=== PATIENT | female | born 1935 | race Caucasian/White ===

== ENCOUNTER 2016-07-06 09:53 | Inpatient (IN) | payer MEDICARE, BC ==
[2016-07-06] MEDS ORDERED: ASPIRIN 81 MG CHEW PO STA (10:35)
[2016-07-06 11:05] LABS: Basophils % (A) 0 %; CH 30.8; CHCM 32.2; Eosinophils # (A) 0.1 k/uL (0-0.7); Eosinophils % (A) 1 %; HCT 36.2 % (34.0-46.0); HDW 2.29; HGB 11.4 gm/dL (11.4-16.0); Luc # (Auto) 0.17; Luc % (Auto) 2; Lymphocytes % (A) 24 %; MCH 30.4 pg (25.0-35.0); MCHC 31.6 g/dL (31.0-37.0); MCV 96.1 fL (80.0-100.0); Mean Platelet Volume 7.6; Monocytes # (A) 0.5 k/uL (0-1.0); Monocytes % (A) 5 %; Neutrophils # (A) 5.8 k/uL (1.3-7.7); Neutrophils % (A) 68 %; RBC 3.76 m/uL (3.80-5.40); RDW 12.1 % (11.5-15.5); WBC 8.5 k/uL (3.8-10.6); WBC (Perox) 8.94
--- NOTE | 2016-07-06 11:11 | XR ---
EXAMINATION TYPE: XR chest 2V DATE OF EXAM: 07/06/2016 11:05 AM COMPARISON: March 25, 2014 HISTORY: Shortness of breath TECHNIQUE: Frontal and lateral views of the chest are obtained. FINDINGS: Scattered senescent parenchymal changes noted. Hyperinflation compatible with COPD. No evidence for infiltrate. No evidence for atelectasis. Heart size is stable. Mediastinal structures are stable and grossly unremarkable. No evidence for hilar prominence. Degenerative changes dorsal spine. IMPRESSION: 1. No evidence for acute pulmonary disease.
[2016-07-06 11:12] LABS: Calcium 9.7 mg/dL (8.4-10.2); Magnesium 1.9 mg/dL (1.6-2.3); Potassium 4.9 mmol/L (3.5-5.1); Total Bilirubin 0.4 mg/dL (0.2-1.3); Total Protein 7.6 g/dL (6.3-8.2)
[2016-07-06 11:31] LABS: Partial Thromboplastin Time 20.5 sec (22.0-30.0)
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
[2016-07-06] MEDS ORDERED: MORPHINE SULFATE 4 MG/ML SYRINGE IV PRN (12:53)
[2016-07-06] MEDS ORDERED: NALOXONE 0.4 MG/ML 1 ML VIAL IV PRN (12:53)
[2016-07-06 13:58] LABS: Glucose,Whole Blood 139 mg/dL (75-99)
[2016-07-06 15:57] VITALS: BMI 43.1
[2016-07-06] MEDS ORDERED: ERGOCALCIFEROL 50,000 UNIT CAP PO SCH (16:00)
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
[2016-07-06] MEDS: SODIUM CHLORIDE 0.9% 1,000 ML IV SCH (16:26)
[2016-07-06 17:34] LABS: Glucose,Whole Blood 176 mg/dL (75-99)
[2016-07-06] MEDS: INSULIN GLARGINE 100 UNIT/ML 10 ML VIAL SQ SCH (18:27)
[2016-07-06] MEDS: CLOPIDOGREL 75 MG TAB PO SCH (20:10)
[2016-07-06] MEDS: ATORVASTATIN 20 MG TAB PO SCH (20:10)
[2016-07-06] MEDS: PRAZOSIN 1 MG CAP PO SCH (20:10)
[2016-07-06] MEDS: FAMOTIDINE 20 MG TAB PO SCH (20:10)
[2016-07-06] MEDS: amLODIPine 5 MG TAB PO SCH (20:10)
[2016-07-06] MEDS ORDERED: ALPRAZolam 0.25 MG TAB PO PRN (22:57)
[2016-07-07 04:45] LABS: Basophils % (A) 0 %; CH 30.6; CHCM 31.6; Eosinophils # (A) 0.1 k/uL (0-0.7); Eosinophils % (A) 2 %; HCT 32.4 % (34.0-46.0); HDW 2.19; HGB 10.3 gm/dL (11.4-16.0); Luc # (Auto) 0.13; Luc % (Auto) 2; Lymphocytes % (A) 32 %; MCH 30.7 pg (25.0-35.0); MCHC 31.6 g/dL (31.0-37.0); MCV 97.1 fL (80.0-100.0); Mean Platelet Volume 6.9; Monocytes # (A) 0.4 k/uL (0-1.0); Monocytes % (A) 7 %; Neutrophils # (A) 3.7 k/uL (1.3-7.7); Neutrophils % (A) 57 %; RBC 3.34 m/uL (3.80-5.40); RDW 12.1 % (11.5-15.5); WBC 6.4 k/uL (3.8-10.6); WBC (Perox) 6.62
[2016-07-07 04:57] LABS: Calcium 8.9 mg/dL (8.4-10.2); Potassium 4.6 mmol/L (3.5-5.1)
[2016-07-07 05:13] LABS: Appearance,Urine Clear (Clear); Bilirubin,Urine Negative (Negative); Glucose,Urine (UA) Negative (Negative); Ketones,Urine Negative (Negative); Leukocyte Esterase,Urine Negative (Negative); Nitrite,Urine Negative (Negative); Protein,Urine Negative (Negative); Specific Gravity,Urine 1.011 (1.001-1.035); UA Billing (MACRO vs. MICRO) CHEM; Urobilinogen,Urine <2.0 mg/dL (<2.0)
[2016-07-07] MEDS: ASPIRIN 325 MG TAB PO SCH (08:50)
[2016-07-07] MEDS: FUROSEMIDE 20 MG TAB PO SCH (08:50)
[2016-07-07] MEDS: FAMOTIDINE 20 MG TAB PO SCH (08:50)
[2016-07-07] MEDS: LEVOTHYROXINE 75 MCG TAB PO SCH (08:51)
[2016-07-07] MEDS: LOSARTAN-HCTZ 50-12.5 MG 1 EACH TAB PO SCH (08:52)
--- NOTE | 2016-07-07 11:31 | HP ---
DATE OF ADMISSION: 07/06/2016 CHIEF COMPLAINT: Lightheadedness, generalized weakness and chest pain. HISTORY OF PRESENT ILLNESS: This 80-year-old woman with a past medical history of multiple medical problems including coronary artery disease with stent, history of diabetes mellitus type 2, hypertension, hyperlipidemia, history of myocardial infarction, history of hypothyroidism, history of stent to proximal circumflex coronary artery and proximal left anterior descending by Dr. Arias, history of bladder surgery, breast surgery being followed by Dr. Hamilton in outpatient setting, not feeling well over the past several days. The patient is complaining of lightheadedness and dizzy and the patient was almost going to pass out. The patient also had chest pain, which was felt in the anterior part of the chest which was localized, rather sharp or dull according to her. The patient came to [facility] and EKG showed third degree and patient admitted for further evaluation and treatment. There is no history of fever, rigors or chills. No history of headache, loss of consciousness or seizures. The patient is being closely monitored in the ICU at this time. The chest x-ray showed no evidence of any pulmonary disease. Cardiology is also evaluating the patient. Heart rate anywhere from high 30s to 60s. The patient was also found to have creatinine 1.56 at the time of admission. There is no history of fever, rigors or chills at this time. PAST MEDICAL HISTORY: History of coronary artery disease and stent, diabetes, hypertension and hyperlipidemia, history of degenerative joint disease, history of bladder surgery, breast surgery. Medications prior to admission include home medications: 1. Nitroglycerin 0.4 sublingual p.r.n. 2. Vitamin D2, 50,000. 3. Minipress 1 mg q.h.s. 4. Hyzaar 1 tablet p.o. daily. 5. Lasix 20 mg p.o. daily. 6. Lipitor 20 mg q.h.s. 7. Ecotrin 320 mg p.o. daily. 8. Glucotrol XL 10 mg daily. 9. Norvasc 5 mg q.h.s. 10. Klor-Con 8 mg p.o. daily. 11. Plavix 75 milligrams q.h.s. 12. Tenormin 25 mg q.h.s. 13. Synthroid 150 mcg p.o. daily. 14. Imdur ER 30 mg p.o. daily. 15. Lantus 22 units with supper. ALLERGIES: DARVOCET, PENICILLIN, PROPOXYPHENE, . FAMILY HISTORY: History of COPD, myocardial infarction. SOCIAL HISTORY: No history of smoking. Occasional alcohol intake. REVIEW OF SYSTEMS: ENT: Diminished hearing, diminished vision. CARDIOVASCULAR: As mentioned earlier. RESPIRATORY: As mentioned earlier. GI: No nausea. : No dysuria. Nervous system: as mentioned earlier. Allergy/immunology: No asthma or hayfever. MUSCULOSKELETAL: As mentioned earlier. HEMATOLOGY/ONCOLOGY: No history of anemia. ENDOCRINE: Diabetes and hypothyroidism. CONSTITUTIONAL: As mentioned earlier. DERMATOLOGY: Negative. RHEUMATOLOGY: Negative. PSYCHIATRY: As mentioned earlier. PHYSICAL EXAMINATION: The patient is alert and oriented times three. Pulse 56, blood pressure 127/52, respiratory rate 14, temperature 98.2, pulse ox 100% on 2 liters. HEENT: Conjunctivae normal. Oral mucosa dry. NECK: No jugular venous distention. No carotid bruit. No thyroid enlargement. CARDIOVASCULAR: S1, S2 muffled, ejection systolic murmur. RESPIRATORY: Breath sounds diminished in the bases. A few scattered rhonchi, no crackles. ABDOMEN: Soft, nontender. No mass palpable. LEGS: No edema. No swelling. CENTRAL NERVOUS SYSTEM: Higher functions as mentioned earlier. Moves all four limbs. No focal motor or sensory deficits. RESPIRATORY: As mentioned earlier mother pets is almost is dry. ABDOMEN: Soft and nontender. No mass palpable. LEGS: Minimal edema. Nervous system: Higher functions as mentioned earlier. Moves all 4 limbs. No focal motor or sensory deficits. LYMPHATICS: No lymph nodes palpable in the neck, axillae or groin. SKIN: No ulcer, rash or bleeding. LABS: WBC 8.3, hemoglobin 11.4, APT 20.5, CO2 is 20, creatinine is 1.5, glucose 176, NT-proBNP 2680, troponin 0.015. ASSESSMENT: 1. Lightheadedness and dizziness with possible complete heart block. 2. Chest pain for evaluation. 3. History of coronary artery disease and stent to the left anterior descending coronary artery and circumflex. 4. Increased creatinine with mild acute renal failure, possible prerenal, secondary to dehydration. 5. Diabetes mellitus type 2. 6. History of hypertension. 7. Hyperlipidemia. 8. Myocardial infarction. 9. Hypothyroidism. 10. History of cardiac murmur. 11. History of rosacea. 12. History of diverticulitis. 13. FULL CODE. Recommendations and discussion: In this 80-year-old woman who presented with multiple complex medical issues, we will monitor the patient closely. Continue the current medications. Avoid beta blockers. limiting medications. Otherwise, monitor closely. Cautious IV fluids and continue to monitor. Repeat labs. Cardiology consultation for evaluation for evaluation for possible pacemaker. Guarded prognosis because of multiple complex medical issues. Further recommendations to follow. A copy being forwarded to Dr. Hamilton who is the primary care physician. CHEIKH
[2016-07-07] MEDS: SODIUM CHLORIDE 0.9% 1,000 ML IV SCH (11:47)
--- NOTE | 2016-07-07 12:18 | ECHOF ---
Referral Reason:heart block MEASUREMENTS -------- HEIGHT: 165.1 cm WEIGHT: 108.9 kg BP: 140/60 RVIDd: 3.6 cm (< 3.3) IVSd: 1.4 cm (0.6 - 1.1) LVIDd: 3.8 cm (3.9 - 5.3) LVPWd: 1.4 cm (0.6 - 1.1) IVSs: 1.8 cm LVIDs: 2.6 cm LVPWs: 1.7 cm LA Diam: 4.0 cm (2.7 - 3.8) LAESV Index (A-L): 44.26 ml/m Ao Diam: 2.6 cm (2.0 - 3.7) AV Cusp: 1.9 cm (1.5 - 2.6) LA Diam: 3.5 cm (2.7 - 3.8) MV EXCURSION: 11.453 mm (> 18.000) MV EF SLOPE: 79 mm/s (70 - 150) EPSS: 0.9 cm MV E Randy: 1.12 m/s MV DecT: 334 ms MV A Randy: 1.30 m/s MV E/A Ratio: 0.86 AV maxP.17 mmHg AV meanP.78 mmHg RAP: 5.00 mmHg RVSP: 33.18 mmHg FINDINGS -------- This was a technically adequate study. The left ventricular size is normal. There is moderate concentric left ventricular hypertrophy. Overall left ventricular systolic function is normal with, an EF between 60 - 65 %. The right ventricle is mildly enlarged. LA is severely dilated >40 ml/m2 The right atrium was not well visualized. There is mild to moderate aortic valve sclerosis. There is mild aortic stenosis present. Peak/mean gradient across the Aortic Valve is 26.17mmHg / 14.78mmHg. Mild mitral annular calcification present. There is trace to mild mitral regurgitation. Mild tricuspid regurgitation present. Right ventricular systolic pressure is normal at < 35 mmHg. The pulmonic valve was not well visualized. The aortic root size is normal. The inferior vena cava is mildly dilated. There is no pericardial effusion. CONCLUSIONS -------- 1. This was a technically adequate study. 2. Peak/mean gradient across the Aortic Valve is 26.17mmHg / 14.78mmHg. 3. Mild mitral annular calcification present. 4. There is trace to mild mitral regurgitation. 5. Mild tricuspid regurgitation present. 6. Right ventricular systolic pressure is normal at < 35 mmHg. 7. The pulmonic valve was not well visualized. 8. The aortic root size is normal. 9. The inferior vena cava is mildly dilated. 10. There is no pericardial effusion. 11. The left ventricular size is normal. 12. There is moderate concentric left ventricular hypertrophy. 13. Overall left ventricular systolic function is normal with, an EF between 60 - 65 %. 14. The right ventricle is mildly enlarged. 15. LA is severely dilated >40 ml/m2 16. The right atrium was not well visualized. 17. There is mild to moderate aortic valve sclerosis. 18. There is mild aortic stenosis present. PROTECTIVE CLOTHING ISSUER: Teresa Mckoy RDCS
[2016-07-07] MEDS: glipiZIDE 5 MG TAB PO SCH ×2 (13:35→20:14)
[2016-07-07] MEDS ORDERED: DEXTROSE/WATER 1 500ML.BAG ONE (14:11)
[2016-07-07] MEDS: DOPamine DRIP 800 MG in DEXTROSE/WATER 1 500ML.BAG IV SCH (17:39)
[2016-07-07 17:41] LABS: Glucose,Whole Blood 127 mg/dL (75-99)
[2016-07-07] MEDS: INSULIN GLARGINE 100 UNIT/ML 10 ML VIAL SQ SCH (17:41)
--- NOTE | 2016-07-07 19:58 | PN ---
DATE OF SERVICE: 07/07/2016 This 80-year-old woman admitted to the hospital with high degree AV block is being closely monitored in the ICU. The patient had lightheadedness and generalized weakness and some chest pains also. Cardiology following the patient closely. Tentatively being evaluated for pacemaker implantation. Past medical history reviewed. REVIEW OF SYSTEMS: CARDIOVASCULAR: As mentioned earlier. RESPIRATORY: As mentioned earlier. GI: No nausea. : No dysuria. Nervous system: No numbness, weakness. Current medications are reviewed and include: 1. Xanax 0.25 t.i.d. 2. Norvasc 5 mg p.o. b.i.d. 3. Aspirin 320 mg daily. 4. Lipitor 20 mg daily. 6. Plavix 75 mg q.h.s. 7. Dopamine drip. 8. Vitamin D2, 50,000 daily. 9. Pepcid 20 mg b.i.d. 10. Lasix 20 mg daily. 11. Glucotrol 5 mg b.i.d. 12. Hyzaar. 13. Lantus 10 units subcu with supper. 14. Synthroid 150 mcg p.o. daily. 15. Melatonin 3 mg q.h.s. p.r.n. 16. Morphine sulfate 4 mg q.4 p.r.n. 17. Narcan 0.2 q.2 p.r.n. 18. Minipress 1 mg at bedtime. PHYSICAL EXAM: The patient is alert and oriented times three. Pulse noted, blood pressure is 163/59, respiratory rate 22, temperature 98.4. Pulse ox 100% on room air. HEENT: Conjunctivae normal. Oral mucosa moist. NECK: No jugular venous distention. No carotid bruit. No lymph node enlargement. CARDIOVASCULAR SYSTEM: S1, S2 muffled. Bradycardic; ejection systolic murmur. RESPIRATORY: Breath sounds diminished at the bases. A few scattered rhonchi, no crackles. ABDOMEN: Soft, nontender. LEGS: No edema. No swelling. Nervous system: No focal deficits. LABS: Hemoglobin 10.3, creatinine is 1.37. 2-D echo with Doppler shows, ejection fraction 60-65%, LA severely dilated more than 40. Mild to moderate aortic valve sclerosis and mild aortic stenosis. ASSESSMENT: 1. syncope with possible high-grade complete third degree AV block, which is symptomatic. 2. Chest pain for evaluation, possibly musculoskeletal. 3. Mild aortic stenosis with a normal ejection fraction. 4. History of coronary artery disease and stent to the left anterior descending coronary artery and circumflex. 5. Increased creatinine with mild acute renal failure, possibly prerenal, secondary to dehydration. 6. Diabetes mellitus type 2. 7. History of hypertension. 8. Hyperlipidemia. 9. History of myocardial infarction. 10. History of hypothyroidism, possibly hypovolemic. 11. History of cardiac murmur. 12. History of rosacea. 13. History of diverticulitis. 14. FULL CODE. RECOMMENDATIONS AND DISCUSSION: Recommend to continue current medications, continue with monitoring, symptomatic treatment. Otherwise, monitor fluid and electrolytes balance closely. Dopamine has been initiated by Cardiology. We will continue to monitor. Otherwise, repeat labs are ordered. Further recommendations to follow. MTDD
[2016-07-07] MEDS: ATORVASTATIN 20 MG TAB PO SCH (20:14)
[2016-07-07] MEDS: PRAZOSIN 1 MG CAP PO SCH (20:14)
[2016-07-07] MEDS: amLODIPine 5 MG TAB PO SCH (20:14)
[2016-07-07] MEDS: CLOPIDOGREL 75 MG TAB PO SCH (20:14)
[2016-07-07] MEDS: MELATONIN 3 MG TABLET PO SCH (22:15)
--- NOTE | 2016-07-08 00:27 | P.PN ---
Subjective Principal diagnosis: Cardiac arrhythmia This is a pleasant 80-year-old female patient with known history of coronary artery disease who presented to the hospital not feeling well. She has been feeling tired and fatigued and also she has been feeling dizzy and lightheaded and almost passing out. In the ER, she was found initially in complete heart block. She was receiving atenolol which was stopped. Currently the patient is in a sinus rhythm with second degree heart block type I. I discussed with the family the need to proceed with a permanent pacemaker implantation. I spoke with Dr. Conde with surrounding on the patient tomorrow and he was scheduled the patient to have a permanent pacemaker implantation. Objective - Vital Signs Vital signs: Vital Signs Temp 98.1 F 07/07/16 20:00 Pulse 44 L 07/07/16 20:00 Resp 15 07/07/16 20:00 BP 173/44 07/07/16 20:00 Pulse Ox 100 07/07/16 17:00 Intake & Output 07/07/16 07/07/16 07/08/16 06:59 18:59 06:59 Intake Total 650 550 116.6 Output Total 500 600 300 Balance 150 -50 -183.4 Weight 110.2 kg Intake: IV 650 550 100 Sodium Chloride 0.9% 1, 650 550 100 000 ml @ 50 mls/hr IV . Q20H [facility] Rx#:[id number] Intake, IV Titration 16.6 Amount DOPamine DRIP 800 mg In 16.6 Dextrose/Water 1 500ml. bag @ 2 MCG/KG/MIN 8.26 mls/hr IV .Q24H [facility] Rx#: [id number] Output: Urine 500 600 300 Other: Voiding Method Toilet # Voids 1 # Bowel Movements 1 - Constitutional General appearance: Present: no acute distress - Respiratory Respiratory: bilateral: CTA - Cardiovascular Rhythm: regular Heart sounds: normal: S1, S2 - Labs CBC & Chem 7: 07/07/16 04:30 07/07/16 04:30 Labs: Abnormal Lab Results - Last 24 Hours (Table) 07/07/16 07/07/16 07/07/16 Range/Units 04:30 04:30 17:39 RBC 3.34 L (3.80-5.40) m/uL Hgb 10.3 L (11.4-16.0) gm/dL Hct 32.4 L (34.0-46.0) % Chloride 112 H (98-107) mmol/L Carbon Dioxide 21 L (22-30) mmol/L BUN 48 H (7-17) mg/dL Creatinine 1.37 H (0.52-1.04) mg/dL POC Glucose (mg/dL) 127 H (75-99) mg/dL Assessment and Plan Plan: Assessment #1 complete heart block #2 known CAD Plan #1 the patient will be seen and evaluated by Dr. Conde and she needs to have permanent pacemaker implantation
[2016-07-08 05:21] LABS: Basophils % (A) 0 %; CH 30.7; CHCM 31.9; Eosinophils # (A) 0.1 k/uL (0-0.7); Eosinophils % (A) 2 %; HDW 2.27; HGB 10.4 gm/dL (11.4-16.0); Luc % (Auto) 2; Lymphocytes # (A) 1.7 k/uL (1.0-4.8); Lymphocytes % (A) 28 %; MCH 30.5 pg (25.0-35.0); MCHC 31.6 g/dL (31.0-37.0); MCV 96.7 fL (80.0-100.0); Mean Platelet Volume 7.9; Monocytes # (A) 0.5 k/uL (0-1.0); Monocytes % (A) 8 %; Neutrophils # (A) 3.8 k/uL (1.3-7.7); Neutrophils % (A) 61 %; RBC 3.42 m/uL (3.80-5.40); RDW 12.2 % (11.5-15.5); WBC 6.2 k/uL (3.8-10.6); WBC (Perox) 6.38
[2016-07-08 05:35] LABS: Calcium 8.9 mg/dL (8.4-10.2); Potassium 4.6 mmol/L (3.5-5.1)
[2016-07-08] MEDS: FUROSEMIDE 20 MG TAB PO SCH (08:26)
[2016-07-08] MEDS: FAMOTIDINE 20 MG TAB PO SCH (08:26)
[2016-07-08] MEDS: ASPIRIN 325 MG TAB PO SCH (08:26)
[2016-07-08] MEDS: LOSARTAN-HCTZ 50-12.5 MG 1 EACH TAB PO SCH (08:26)
[2016-07-08] MEDS: LEVOTHYROXINE 75 MCG TAB PO SCH (08:26)
[2016-07-08] MEDS: glipiZIDE 5 MG TAB PO SCH ×2 (08:26→21:11)
[2016-07-08] MEDS: SODIUM CHLORIDE 0.9% 1,000 ML IV SCH ×2 (10:44→13:22)
[2016-07-08 12:26] LABS: Glucose,Whole Blood 177 mg/dL (75-99)
[2016-07-08] MEDS ORDERED: CLINDAMYCIN 600 MG in SODIUM CHLORIDE 0.9% IRRIGATIO 250 ML IRRIGATION ONE (12:32)
[2016-07-08] MEDS ORDERED: CLINDAMYCIN 900 MG in DEXTROSE 5% IN WATER 50 ML IVPB ONE ×2 (12:32)
[2016-07-08] MEDS ORDERED: SODIUM CHLORIDE 0.9% 1,000 ML IV SCH (12:45)
[2016-07-08] MEDS: INSULIN LISPRO (humaLOG) 300 UNIT/3 ML VIAL SQ SCH ×3 (13:23→21:12)
[2016-07-08] MEDS ORDERED: IV FLUID CONTINUATION 950 ML IV ONE (15:00)
[2016-07-08] MEDS ORDERED: SODIUM CHLORIDE 0.9% 500 ML IV ONE (15:20)
[2016-07-08] MEDS ORDERED: MIDAZOLAM 2 MG/2 ML VIAL ONE (15:29)
[2016-07-08] MEDS ORDERED: LIDOCAINE 2% INJ 20 MG/ML SQ ONE (15:31)
[2016-07-08] MEDS ORDERED: MIDAZOLAM 2 MG/2 ML VIAL IVP ONE (15:32)
[2016-07-08] MEDS ORDERED: fentaNYL (PF) 50 MCG/ML 2 ML AMP ONE (15:56)
[2016-07-08] MEDS ORDERED: LIDOCAINE 1% INJ 10MG/ML (20 ML MDV) SQ ONE ×3 (15:56→16:06)
[2016-07-08] MEDS ORDERED: fentaNYL (PF) 50 MCG/ML 2 ML AMP IV ONE (15:58)
[2016-07-08] MEDS ORDERED: IODIXANOL 320 MG/ML 100 ML IV ONE (16:16)
--- NOTE | 2016-07-08 17:05 | P.PCN ---
Preoperative Diagnosis: Transvenous temporary pacing procedure Indication for the procedure: Severe underlying bradycardia heart rate 34 beats a minute Patient was brought to the EP lab in a fasting state. Written informed consent was obtained prior to the procedure. The right groin was prepped and draped as a protocol. A 6-[place] sheath was placed in the right femoral vein. Via this, a temporary pacing catheter was placed in the right ventricle. Thresholds were interrogated. Temporary pacing was performed through the rest of the procedure. At the end of the entire procedure, the TVP was removed. The sheath was removed and hemostasis was assured. Patient tolerated the procedure well without any acute complications. Procedure performed Transvenous temporary pacing
[2016-07-08 17:51] LABS: Glucose,Whole Blood 95 mg/dL (75-99)
[2016-07-08] MEDS ORDERED: HYDROmorphone 1 MG/ML 1 ML SYRINGE IVP PRN (17:53)
[2016-07-08] MEDS: DOPamine DRIP 800 MG in DEXTROSE/WATER 1 500ML.BAG IV SCH (17:56)
--- NOTE | 2016-07-08 17:56 | CE ---
DATE OF SERVICE: An 80-year-old female who presented with weakness, dizziness, and not feeling well over the last several days. She has not been feeling well for almost a month now. She was on low-dose atenolol 25 mg p.o. daily, which was discontinued. Despite that, her bradycardia persisted. She had 2:1 heart block with heart rates in the 30s, narrow QRS. IV dopamine was also given but the heart rate barely increased to 40 beats a minute. She was brought in for dual-chamber pacemaker implantation for severe bradycardia secondary to AV node disease, symptomatic. Patient was brought to the EP lab in a fasting state. Written informed consent was obtained prior to the procedure. After placement of the template pacemaker lead, permanent pacemaker was implanted. The left pectoral area was prepped and draped as per protocol. 1% lidocaine was used for local anesthesia. A 4 cm incision was made parallel to the deltopectoral groove 1.5 cm medial to it. The incision was carried down to the level of pectoralis muscle and a subfascial pocket was made. Hemostasis was assured. The left axillary vein was accessed at 2 separate points under fluoroscopy and 2 leads were positioned in the right heart. Atrial lead was a tined lead, [employer] model #1944, 46 cm in length and serial #[id number]. This was positioned in the right atrial appendage. P waves were 1.8 mV, pacing threshold 1.7 v at 0.5 ms, pacing impedance of 428 ohms. 10 V test was negative. The RV lead was positioned in the RV apex. This was a tined [employer] model 1948, 58 cm in length and serial [id number]. The paced R waves were 14 mV, pacing impedance 716 ohms. Pacing threshold 0.25 v at 0.5 ms. 10 V test was negative. Both leads were secured to the underlying pectoralis fascia using 2 nonabsorbable sutures. The pocket was irrigated with antibiotic solution. Leads were connected to the generator ([employer] model #FD1471, serial #[id number]. The leads and the generator were then placed in the subfascial pocket. The wound was closed in 3 layers and dressed per protocol. Generator was secured to the underlying pectoralis fascia. The patient tolerated the procedure well without any acute complications. Pacemaker was programmed to DDD mode at 52/120 ppm with normal AV delay. PLAN: Restart atenolol at 50 mg p.o. daily. Continue all other cardiac medications.
--- NOTE | 2016-07-08 17:59 | LTR ---
July 08, 2016 RE: Marily Burk [facility] Dear Dr. Hamilton: I had the pleasure of seeing Marily Burk in electrophysiology follow-up. Marily was admitted to the hospital with very symptomatic bradycardia and is secondary to AV node disease, which persisted despite discontinuation of atenolol. She underwent a dual-chamber pacemaker implantation successfully without any acute complications. I have now increased the dose of atenolol to 50 mg p.o. daily. If you have any questions, do not hesitate to give me a call. Sincerely, MARIBEL MONTESINOS MD
[2016-07-08] MEDS: ATENOLOL 50 MG TAB PO SCH (18:05)
--- NOTE | 2016-07-08 18:37 | CONS ---
DATE OF CONSULTATION: 80-year-old female in the ICU. I was called by Dr. Amanda on Sunday. I saw the patient at about 1:00 Sunday afternoon. I spoke to the patient and the family. REASON FOR CONSULTATION: Severe bradycardia despite ( ) of low-dose beta blockers. Marily has been complaining of significant tired and fatigue for the last several weeks and for the last 2 to 3 she is very dizzy and lightheaded and feels she may even pass out. When she came to the emergency room, she was found to be quite bradycardic with severe AV node disease. She was on low-dose atenolol because she has underlying coronary artery disease and atenolol was discontinued. However, her heart rate remains in the 30s at rest when she is wide awake. Past history of coronary artery disease, coronary artery stenting, diabetes, dyslipidemia, hypertension, history of SD. PAST SURGICAL HISTORY: Coronary stenting to the proximal LAD and proximal circ. The medication list was reviewed. Atenolol is being discontinued 24 hours back, ( ), hydrochlorothiazide, Losartan, oral potassium, amlodipine, isosorbide, Plavix, atorvastatin, insulin, glipizide. ALLERGIES TO PENICILLIN. REVIEW OF SYSTEMS: No fever, chills, rigors. No cough or expectoration. No nausea, vomiting or diarrhea. No hematuria, dysuria. No strokes or seizures. No skin lesions or musculoskeletal complaints. On examination her blood pressure is elevated. Heart rate was in the 30. Head and neck examination is normal. No JVD, thyromegaly or carotid bruits. Heart sounds are soft. No murmurs. Breath sounds are reduced bilaterally with no rhonchi. No crackles. ABDOMEN: Soft, nontender. EXTREMITIES: Warm. No edema. IMPRESSION: 1. Severe bradycardia with heart rates in the mid 30s despite stopping low-dose atenolol. This is secondary to severe AV node disease and electrolytes are normal. 2. Hypertension. 3. Coronary artery disease, status post coronary stenting of the left circumflex and left anterior descending coronary artery. 4. Chronic kidney disease with GFR 37. Suggest: Low dose dopamine to increase heart rate between 40 to per minute and dual-chamber pacemaker implantation. I had a very detailed discussion with the patient and her daughter. The daughter is very anxious about her condition and thought she was going to have a heart attack. I explained the difference between heart attack and bradycardia secondary to AV node disease. She has not had an myocardial infarction at this time, I would recommend a dual-chamber permanent pacemaker implantation for ( ) of atenolol and maximization of medical therapy for hypertension. Patient and family are agreeable with the plan.
[2016-07-08] MEDS: amLODIPine 5 MG TAB PO SCH (21:11)
[2016-07-08] MEDS: PRAZOSIN 1 MG CAP PO SCH (21:11)
[2016-07-08] MEDS: CLINDAMYCIN 900 MG in DEXTROSE 5% IN WATER 50 ML IVPB SCH ×2 (21:11)
[2016-07-08] MEDS: MELATONIN 3 MG TABLET PO SCH (21:11)
[2016-07-08] MEDS: CLOPIDOGREL 75 MG TAB PO SCH (21:11)
[2016-07-08] MEDS: ATORVASTATIN 20 MG TAB PO SCH (21:11)
[2016-07-08 21:17] LABS: Glucose,Whole Blood 150 mg/dL (75-99)
[2016-07-08] MEDS: INSULIN GLARGINE 100 UNIT/ML 10 ML VIAL SQ SCH (21:35)
[2016-07-08] MEDS: ACETAMINOPHEN TAB 325 MG TAB PO PRN (23:38)
[2016-07-09 05:29] LABS: Basophils % (A) 0 %; CH 30.5; CHCM 31.8; Eosinophils # (A) 0.1 k/uL (0-0.7); Eosinophils % (A) 2 %; HCT 31.5 % (34.0-46.0); HDW 2.26; Luc # (Auto) 0.12; Luc % (Auto) 2; Lymphocytes # (A) 1.6 k/uL (1.0-4.8); Lymphocytes % (A) 24 %; MCH 30.6 pg (25.0-35.0); MCHC 31.8 g/dL (31.0-37.0); MCV 96.2 fL (80.0-100.0); Mean Platelet Volume 7.2; Monocytes # (A) 0.4 k/uL (0-1.0); Monocytes % (A) 6 %; Neutrophils # (A) 4.5 k/uL (1.3-7.7); Neutrophils % (A) 66 %; RBC 3.27 m/uL (3.80-5.40); RDW 12.1 % (11.5-15.5); WBC 6.8 k/uL (3.8-10.6); WBC (Perox) 6.87
[2016-07-09 05:40] LABS: Potassium 4.8 mmol/L (3.5-5.1)
[2016-07-09] MEDS: LEVOTHYROXINE 75 MCG TAB PO SCH (07:28)
[2016-07-09] MEDS: ACETAMINOPHEN TAB 325 MG TAB PO PRN ×2 (07:31→20:14)
[2016-07-09 07:57] LABS: Glucose,Whole Blood 70 mg/dL (75-99)
--- NOTE | 2016-07-09 08:13 | XR ---
EXAMINATION TYPE: XR chest 2V DATE OF EXAM: 07/09/2016 7:09 AM COMPARISON: 07/06/2016 INDICATION: Lead placement check TECHNIQUE: Frontal and lateral views of the chest are obtained. FINDINGS: The heart size is normal. The pulmonary vasculature is normal. The lungs are clear. Pacemaker is in place on the left with leads in typical orientation. No pneumothorax is evident. IMPRESSION: 1. No acute pulmonary process. 2. Pacemaker placement. No pneumothorax is evident.
[2016-07-09] MEDS: CLINDAMYCIN 900 MG in DEXTROSE 5% IN WATER 50 ML IVPB SCH ×8 (08:50→20:14)
[2016-07-09] MEDS: SODIUM CHLORIDE 0.9% 1,000 ML IV SCH (08:52)
[2016-07-09] MEDS: INSULIN LISPRO (humaLOG) 300 UNIT/3 ML VIAL SQ SCH ×4 (08:53→22:21)
[2016-07-09] MEDS: LOSARTAN-HCTZ 50-12.5 MG 1 EACH TAB PO SCH (08:54)
[2016-07-09] MEDS: FUROSEMIDE 20 MG TAB PO SCH (08:54)
[2016-07-09] MEDS: glipiZIDE 5 MG TAB PO SCH ×2 (08:54→20:10)
[2016-07-09] MEDS: FAMOTIDINE 20 MG TAB PO SCH (08:54)
[2016-07-09] MEDS: ASPIRIN 325 MG TAB PO SCH (08:54)
[2016-07-09] MEDS: ATENOLOL 50 MG TAB PO SCH (08:54)
--- NOTE | 2016-07-09 10:48 | PN ---
DATE OF SERVICE: 07/08/2016 This 80-year-old woman was admitted with a high degree AV block underwent dual chamber pacemaker implantation without any complications. The beta blockers have been reduced to atenolol 50 mg daily. Patient closely monitored in ICU. PAST MEDICAL HISTORY: Reviewed. REVIEW OF SYSTEMS: CARDIOVASCULAR: As mentioned earlier. RESPIRATORY: As mentioned earlier. GI: No nausea. : No dysuria. NERVOUS SYSTEM: No numbness or weakness. Current medications are reviewed and include: 1. Tylenol 650 q.6 p.r.n. 2. Xanax 0.5 t.i.d. 3. Norvasc. 4. Aspirin. 5. Tenormin. 6. Lipitor. 7. Clindamycin. 8. Plavix. 9. Vitamin D2. 10. Pepcid. 11. Lasix. 12. Glucotrol. 13. Hyzaar. 14. Dilaudid. 15. Lantus. 16. Humalog. 17. Synthroid. 18. Melatonin. 19. Narcan. 20. Minipress. PHYSICAL EXAMINATION: Patient is alert and oriented x2. Pulse is 65, blood pressure 140/62, respirations 26, temperature 97.1, pulse ox 97% on room air. HEENT: Conjunctivae normal. NECK: No jugular venous distention. CARDIOVASCULAR: S1 and S2, muffled. RESPIRATORY: Breath sounds diminished at the bases. A few scattered rhonchi. No crackles. ABDOMEN: Soft, nontender. No mass palpable. LEGS: No edema, no swelling. NERVOUS SYSTEM: No focal deficits. EXAMINATION OF THE RIGHT CHEST: Pacemaker implantation. LABS: Hemoglobin 10.4. Creatinine is 1.6. Other labs are noted. ASSESSMENT: 1. Syncope with high-grade AV block, third degree AV block, status post dual-chamber pacemaker implantation. 2. Chest pain, possibly musculoskeletal. 3. Mild aortic stenosis with normal ejection fraction. 4. History of coronary artery disease and stent of the left anterior descending and circumflex. 5. Increased creatinine with chronic kidney disease stage III. 6. Diabetes mellitus type 2. 7. History of hypertension. 8. Hyperlipidemia. 9. History of myocardial infarction. 10. History of hypothyroidism. 11. History of cardiac murmur. 12. History of rosacea. 13. History of diverticulitis. 14. FULL CODE. RECOMMENDATIONS AND DISCUSSION: In this 80-year-old woman who presented with multiple complex medical issues, will monitor the patient closely. Continue the current medications. Continue the symptomatic treatment. Repeat labs. Otherwise beta blockers as per Cardiology. Monitor fluid and electrolyte balance closely. Avoid nephrotoxic medications. Creatinine appears to be elevated persistently, indicating possibly more likely chronic kidney disease rather than acute event. Once again, the prognosis guarded. Follow up with Dr. Hamilton in the outpatient setting. Further recommendations to follow.
[2016-07-09 11:57] LABS: Glucose,Whole Blood 184 mg/dL (75-99)
[2016-07-09 17:41] LABS: Glucose,Whole Blood 158 mg/dL (75-99)
[2016-07-09] MEDS: INSULIN GLARGINE 100 UNIT/ML 10 ML VIAL SQ SCH (18:20)
--- NOTE | 2016-07-09 18:21 | P.PN ---
Subjective Patient is doing well today. Pacemaker site is healed well No hematoma She denies any chest discomfort no undue shortness of breath On examination Blood pressure 136/53 mmHg, normal respirations, temperature 97.8, pulse rate 60 Breath sounds are reduced bilaterally but no rhonchi no crackles Heart sounds are soft Normal S1 normal S2 Abdomen is soft nontender Extremities warm no edema She did not get her 3 AM dose of IV antibiotics Plan Continue IV antibiotics for a total of 4 doses postprocedure Beta blockers to be maximized Patient has known underlying coronary artery disease Pacemaker was implanted for severe bradycardia secondary to severe AV node disease Hypertension management Objective - Vital Signs Vital signs: Vital Signs Temp 97.8 F 07/09/16 16:00 Pulse 61 07/09/16 16:00 Resp 18 07/09/16 16:00 BP 136/53 07/09/16 16:00 Pulse Ox 98 07/09/16 16:00 Intake & Output 07/08/16 07/09/16 07/09/16 18:59 06:59 18:59 Intake Total 927.107 120 760 Output Total 400 1000 650 Balance 527.107 -880 110 Weight 110.4 kg Intake: IV 431 Sodium Chloride 0.9% 1, 100 000 ml @ 50 mls/hr IV . Q20H [facility] Rx#:[id number] Intake, IV Titration 256.107 120 280 Amount Clindamycin 900 mg In 100 Dextrose 5% in Water 50 ml @ 100 mls/hr IVPB Q6H [facility] Rx#:[id number] DOPamine DRIP 800 mg In 216.107 Dextrose/Water 1 500ml. bag @ 2 MCG/KG/MIN 8.26 mls/hr IV .Q24H [facility] Rx#: [id number] Sodium Chloride 0.9% 1, 40 120 180 000 ml @ 20 mls/hr IV . Q24H [facility] Rx#:[id number] Oral 240 480 Output: Urine 400 1000 650 Other: Voiding Method Toilet Toilet Toilet # Voids 1 - Labs CBC & Chem 7: 07/09/16 04:44 07/09/16 04:44 Labs: Abnormal Lab Results - Last 24 Hours (Table) 07/08/16 07/09/16 07/09/16 Range/Units 21:10 04:44 04:44 RBC 3.27 L (3.80-5.40) m/uL Hgb 10.0 L (11.4-16.0) gm/dL Hct 31.5 L (34.0-46.0) % Chloride 110 H (98-107) mmol/L Carbon Dioxide 21 L (22-30) mmol/L BUN 48 H (7-17) mg/dL Creatinine 1.40 H (0.52-1.04) mg/dL POC Glucose (mg/dL) 150 H (75-99) mg/dL 07/09/16 07/09/16 07/09/16 Range/Units 07:56 11:37 17:20 RBC (3.80-5.40) m/uL Hgb (11.4-16.0) gm/dL Hct (34.0-46.0) % Chloride (98-107) mmol/L Carbon Dioxide (22-30) mmol/L BUN (7-17) mg/dL Creatinine (0.52-1.04) mg/dL POC Glucose (mg/dL) 70 L 184 H 158 H (75-99) mg/dL
--- NOTE | 2016-07-09 19:28 | PN ---
DATE OF SERVICE: 07/09/2016 This 80 -year-old woman was admitted with high degree AV block, dual chamber pacemaker implantation. The patient improved significantly. Chest x-ray done today showed no acute process, pacemaker placement. On exam, alert and oriented x3. Pulse 60, blood pressure 140/45, respirations 13, temperature 97.7. Pulse ox 90% on room air. HEENT: Conjunctivae normal. NECK: No jugular venous distention. CARDIOVASCULAR: S1, S2 muffled. RESPIRATORY: Breath sounds diminished in the bases. Scattered rhonchi, no crackles. ABDOMEN: Soft, nontender. LEGS: No swelling. No edema. Nervous system: No focal deficits. LABS: WBC 6.8, hemoglobin is 10, creatinine is 1.40. ASSESSMENT: 1. Syncope with high degree block, third-degree block status post pacemaker implantation. 2. Chest pain possible musculoskeletal. 3. Mild aortic stenosis with normal ejection fraction. 4. History of coronary artery disease and stent of the left anterior descending coronary artery and circumflex. 5. Increased creatinine with chronic kidney disease, stage III. 6. Diabetes mellitus type 2. 7. History of hypertension. 8. Hyperlipidemia. 9. History of myocardial infarction. 10. History of hypothyroidism. 11. History of cardiac murmur. 12. History of rosacea. 13. History of diverticulitis. 14. FULL CODE. RECOMMENDATIONS AND DISCUSSION: In this 80-year-old woman who presented with multiple complex medical issues, we will monitor the patient closely. Continue current medications. Continue symptomatic treatment. Otherwise, monitor creatinine closely. Increase ambulation. Transfer to telemetry. Closely follow with cardiology. Continue the rest of the medications. Further recommendations to follow. MTDD
[2016-07-09] MEDS: amLODIPine 5 MG TAB PO SCH (20:10)
[2016-07-09] MEDS: CLOPIDOGREL 75 MG TAB PO SCH (20:11)
[2016-07-09] MEDS: MELATONIN 3 MG TABLET PO SCH (20:11)
[2016-07-09] MEDS: ATORVASTATIN 20 MG TAB PO SCH (20:11)
[2016-07-09] MEDS: PRAZOSIN 1 MG CAP PO SCH (20:11)
[2016-07-09 22:15] LABS: Glucose,Whole Blood 160 mg/dL (75-99)
[2016-07-10] MEDS: SODIUM CHLORIDE 0.9% 1,000 ML IV SCH (02:34)
[2016-07-10 05:10] LABS: Basophils % (A) 0 %; CH 30.8; CHCM 32.5; Eosinophils # (A) 0.2 k/uL (0-0.7); Eosinophils % (A) 2 %; HDW 2.31; HGB 10.6 gm/dL (11.4-16.0); Luc # (Auto) 0.09; Luc % (Auto) 1; Lymphocytes # (A) 2.7 k/uL (1.0-4.8); Lymphocytes % (A) 35 %; MCH 31.5 pg (25.0-35.0); MCHC 33.1 g/dL (31.0-37.0); MCV 95.3 fL (80.0-100.0); Monocytes # (A) 0.6 k/uL (0-1.0); Monocytes % (A) 7 %; Neutrophils # (A) 4.2 k/uL (1.3-7.7); Neutrophils % (A) 54 %; RBC 3.36 m/uL (3.80-5.40); RDW 12.1 % (11.5-15.5); WBC 7.7 k/uL (3.8-10.6); WBC (Perox) 7.87
[2016-07-10 05:25] LABS: Calcium 8.9 mg/dL (8.4-10.2); Potassium 4.7 mmol/L (3.5-5.1)
[2016-07-10] MEDS: LEVOTHYROXINE 75 MCG TAB PO SCH (06:42)
[2016-07-10 06:48] LABS: Glucose,Whole Blood 49 mg/dL (75-99)
[2016-07-10 06:48] LABS: Glucose,Whole Blood 48 mg/dL (75-99)
[2016-07-10 07:05] LABS: Glucose,Whole Blood 67 mg/dL (75-99)
[2016-07-10 07:31] LABS: Glucose,Whole Blood 92 mg/dL (75-99)
[2016-07-10] MEDS: INSULIN LISPRO (humaLOG) 300 UNIT/3 ML VIAL SQ SCH ×2 (07:45→13:15)
[2016-07-10] MEDS: ATENOLOL 50 MG TAB PO SCH (08:25)
[2016-07-10] MEDS: LOSARTAN-HCTZ 50-12.5 MG 1 EACH TAB PO SCH (08:25)
[2016-07-10] MEDS: FUROSEMIDE 20 MG TAB PO SCH (08:25)
[2016-07-10] MEDS: FAMOTIDINE 20 MG TAB PO SCH (08:25)
[2016-07-10] MEDS: ASPIRIN 325 MG TAB PO SCH (08:26)
[2016-07-10] MEDS: glipiZIDE 5 MG TAB PO SCH (08:26)
[2016-07-10 11:51] LABS: Glucose,Whole Blood 167 mg/dL (75-99)
[2016-07-10 13:13] VITALS: PULSE 62; RESP 18; TEMP 98.2
[2016-07-10] MEDS ORDERED: amLODIPine 5 MG TAB PO SCH (14:45)
--- NOTE | 2016-07-10 16:16 | P.PN ---
Subjective Principal diagnosis: Third-degree heart block This is a pleasant 80-year-old female who follows regularly with Dr. Arias in the office. She has a history of hypertension, hyperlipidemia, diabetes, coronary artery disease with prior circumflex stent in 2013 with restenosis and restenting of the circumflex in June 2015, patient also underwent LAD stenting in June 2015 as well. According to the patient, she' s been doing fairly well at home, over the past few days to one week she has been more tired than usual, and the past few days she has noticed symptoms of lightheadedness. She states that she was standing at the counter getting ready to wash the dishes, became quite lightheaded and felt as though she may pass out. She denies any overt dizziness. She did complain of a mild sharp chest pain in the mid chest area, somewhat atypical in nature. On presentation to the emergency room, EKG was performed which revealed a third-degree heart block. Today patient underwent implantation of a permanent pacemaker. Device was interrogated and is functioning appropriately. Today she continues to be in a paced rhythm with a heart rate in the 80s. Objective - Vital Signs Vital signs: Vital Signs Temp 98.2 F 07/10/16 12:00 Pulse 62 07/10/16 12:00 Resp 18 07/10/16 12:00 BP 160/68 07/10/16 12:00 Pulse Ox 99 07/10/16 12:00 Intake & Output 07/09/16 07/10/16 07/10/16 18:59 06:59 18:59 Intake Total 760 530 480 Output Total 1050 0 Balance -290 530 480 Weight 110.6 kg Intake: Intake, IV Titration 280 50 Amount Clindamycin 900 mg In 100 50 Dextrose 5% in Water 50 ml @ 100 mls/hr IVPB Q6H [facility] Rx#:[id number] Sodium Chloride 0.9% 1, 180 000 ml @ 20 mls/hr IV . Q24H [facility] Rx#:[id number] Oral 480 480 480 Output: Urine 1050 0 Other: Voiding Method Toilet Toilet Toilet # Voids 1 1 - Exam PHYSICAL EXAMINATION: HEENT: Head is atraumatic, normocephalic. Pupils equal, round. Neck is supple. There is no elevated jugular venous pressure. HEART EXAMINATION: S1 and S2 systolic ejection murmur is heard. CHEST EXAMINATION: Lungs are clear to auscultation and precussion. No chest wall tenderness is noted on palpation or with deep breathing. Site of permanent pacemaker, dressing is dry and intact. ABDOMEN: Soft, nontender. Bowel sounds are heard. No organomegaly noted. EXTREMITIES: 2+ peripheral pulses with no evidence of peripheral edema and no calf tenderness noted. NEUROLOGIC patient is awake, alert and oriented -3. . - Labs CBC & Chem 7: 07/10/16 04:59 07/10/16 04:59 Labs: Abnormal Lab Results - Last 24 Hours (Table) 07/09/16 07/09/16 07/10/16 Range/Units 17:20 22:13 04:59 RBC 3.36 L (3.80-5.40) m/uL Hgb 10.6 L (11.4-16.0) gm/dL Hct 32.0 L (34.0-46.0) % Chloride (98-107) mmol/L BUN (7-17) mg/dL Creatinine (0.52-1.04) mg/dL Glucose (74-99) mg/dL POC Glucose (mg/dL) 158 H 160 H (75-99) mg/dL 07/10/16 07/10/16 07/10/16 Range/Units 04:59 06:45 06:46 RBC (3.80-5.40) m/uL Hgb (11.4-16.0) gm/dL Hct (34.0-46.0) % Chloride 110 H (98-107) mmol/L BUN 44 H (7-17) mg/dL Creatinine 1.39 H (0.52-1.04) mg/dL Glucose 61 L (74-99) mg/dL POC Glucose (mg/dL) 49 L 48 L (75-99) mg/dL 07/10/16 07/10/16 Range/Units 07:03 11:50 RBC (3.80-5.40) m/uL Hgb (11.4-16.0) gm/dL Hct (34.0-46.0) % Chloride (98-107) mmol/L BUN (7-17) mg/dL Creatinine (0.52-1.04) mg/dL Glucose (74-99) mg/dL POC Glucose (mg/dL) 67 L 167 H (75-99) mg/dL Assessment and Plan Plan: Assessment and plan #1 symptoms of lightheadedness and tiredness, admission EKG showed a complete heart block with a heart rate of 40. Patient is now status post implantation of a permanent pacemaker. #2 known history of coronary artery disease with prior LAD and circumflex stenting #3 hypertension #4 hyperlipidemia # 5 diabetes #6 hypothyroidism #7 renal insufficiency Plan From cardiology's perspective, patient should be able to be discharged home today. We will make her device clinic appointment in one week, then patient will follow with Dr. Arias in 3 weeks. She was resumed on her atenolol and the dose was increased to 50 mg daily. Prescription was provided. DNP note has been reviewed, I agree with a documented findings and plan of care. Patient was seen and examined.
[2016-07-10 16:31] VITALS: BP 159/76
--- NOTE | 2016-07-11 16:05 | DS ---
DATE OF ADMISSION: 07/06/2016 DATE OF DISCHARGE: 07/10/2016 FINAL DIAGNOSES: 1. Syncope with high degree AV block, third degree AV block, status post dual-chamber pacemaker implantation. 2. Chest pain, possibly musculoskeletal. 3. Mild aortic stenosis with normal ejection fraction. 4. History of coronary artery disease and stent of the left anterior descending and coronary artery disease in circumflex. 5. Increased creatinine with chronic disease, stage III. 6. Diabetes mellitus type 2. 7. History of hypertension. 8. Hyperlipidemia. 9. History of myocardial infarction. 10. History of hypothyroidism. 11. History of cardiac murmur. 12. History of rosacea. 13. History of diverticulitis. 14. FULL CODE. DISCHARGE DISPOSITION: The patient will be discharged in stable condition with guarded prognosis. Time taken is 35 minutes. HISTORY OF PRESENT ILLNESS: This 80-year-old woman with past medical history of multiple medical problems admitted with recurrent episodes of syncope. High-grade A-V block was noted. Despite stopping the beta blockers, the bradycardia persisted and Cardiology decided to implant a dual chamber pacemaker. On exam, vitals are stable. CARDIOVASCULAR SYSTEM: S1, S2 muffled. ABDOMEN: Soft. NERVOUS SYSTEM: No focal deficits. Otherwise, lab-garcia; hemoglobin 10.6, creatinine is 1.3. Sugars are noted. The patient improved significantly. Patient will be discharged in stable condition with guarded prognosis after clearance by Cardiology. DISCHARGE ADVICE: 1. Diet is cardiac. 2. Activity limited until follow-up. 3. Follow up with Dr. Hamilton 2 to 3 days with labs. 4. Follow up with Dr. Arias as advised in the [facility], appointment. MEDICATIONS: 1. Ecotrin 325 mg daily. 2. Tenormin 50 mg p.o. daily. 3. Lipitor 20 mg q.h.s. 4. Plavix 75 mg p.o. daily. 5. Vitamin D2, 50,000. 6. Lasix 20 mg p.o. daily. 7. Lantus 22 units subcu with supper. 8. Imdur 30 mg p.o. daily. 9. Synthroid 150 mcg p.o. daily. 10. Losartan hydrochlorothiazide 1 tablet p.o. daily. 11. Nitrostat 0.4 sublingual p.r.n. 12. Klor-Con 8 mg p.o. daily. 13. Prazosin 1 mg p.o. q.h.s. 14. Norvasc 5 mg p.o. q.h.s. 15. Glucotrol XL 10 mg p.o. daily. Once again, the patient will be discharged in a stable condition with guarded prognosis.
== END 2016-07-10 16:38 | disposition home or self-care (01) | DRG 243 ==
LOC: EC 09:53 → 6SEL 12:53 → 6ICU 15:09
PROVIDERS: ADMIT Hospitalist; ATTEND Hospitalist
PROC: 02H63JZ Insertion of Pacemaker Lead into Right Atrium, Percutaneous Approach (ICD-10-PCS; 2016-07-08)
PROC: 02HK3JZ Insertion of Pacemaker Lead into Right Ventricle, Percutaneous Approach (ICD-10-PCS; 2016-07-08)
PROC: 0JH606Z Insertion of Pacemaker, Dual Chamber into Chest Subcutaneous Tissue and Fascia, Open Approach (ICD-10-PCS; principal; 2016-07-08 15:00)
DX: I44.2 Atrioventricular block, complete (principal); N17.9 Acute kidney failure, unspecified; E11.22 Type 2 diabetes mellitus with diabetic chronic kidney disease; E86.0 Dehydration; I35.0 Nonrheumatic aortic (valve) stenosis; E03.9 Hypothyroidism, unspecified; E78.5 Hyperlipidemia, unspecified; I12.9 Hypertensive chronic kidney disease with stage 1 through stage 4 chronic kidney disease, or unspecified chronic kidney disease; I25.10 Atherosclerotic heart disease of native coronary artery without angina pectoris; I25.2 Old myocardial infarction; M19.90 Unspecified osteoarthritis, unspecified site; N18.3 Chronic kidney disease, stage 3 (moderate); H26.9 Unspecified cataract; L71.9 Rosacea, unspecified; K57.90 Diverticulosis of intestine, part unspecified, without perforation or abscess without bleeding; Z95.5 Presence of coronary angioplasty implant and graft; Z79.02 Long term (current) use of antithrombotics/antiplatelets; Z79.82 Long term (current) use of aspirin; Z79.4 Long term (current) use of insulin; Z79.899 Other long term (current) drug therapy; Z88.6 Allergy status to analgesic agent; Z88.5 Allergy status to narcotic agent; Z88.0 Allergy status to penicillin; Z82.49 Family history of ischemic heart disease and other diseases of the circulatory system
CPT/HCPCS: 33208; 36415; 71020; 80048; 80053; 81003; 83036; 83690; 83735; 83880; 84439; 84443; 84484; 85025; 85610; 85730; 93005; 93306; 99285

== ENCOUNTER → 2017-02-13 | Outpatient (CLI) | payer MEDICARE, BC ==
[2017-02-13 11:18] LABS: Calcium 9.5 mg/dL (8.4-10.2); Potassium 4.6 mmol/L (3.5-5.1); Total Bilirubin 0.3 mg/dL (0.2-1.3); Total Protein 7.4 g/dL (6.3-8.2)
== END | disposition home or self-care (01) ==
LOC: LABWHC1 09:59
PROVIDERS: ATTEND Internal Medicine Interventional Cardiology
DX: E78.2 Mixed hyperlipidemia (principal)
CPT/HCPCS: 36415; 80053; 80061

== ENCOUNTER → 2017-03-12 | Outpatient (CLI) | payer MEDICARE, BC ==
[2017-03-12 15:26] LABS: Calcium 9.2 mg/dL (8.4-10.2); Potassium 4.7 mmol/L (3.5-5.1); Total Bilirubin 0.3 mg/dL (0.2-1.3); Total Protein 7.1 g/dL (6.3-8.2)
== END | disposition home or self-care (01) ==
LOC: LABWHC1 14:42
PROVIDERS: ATTEND Internal Medicine Interventional Cardiology
DX: R60.0 Localized edema (principal); I25.10 Atherosclerotic heart disease of native coronary artery without angina pectoris
CPT/HCPCS: 36415; 80053; 83880

== ENCOUNTER → 2017-04-02 | Outpatient (CLI) | payer MEDICARE, BC ==
[2017-04-02 11:08] LABS: Calcium 9.6 mg/dL (8.4-10.2); Potassium 4.6 mmol/L (3.5-5.1); Total Bilirubin 0.3 mg/dL (0.2-1.3); Total Protein 7.5 g/dL (6.3-8.2)
[2017-04-02 11:53] LABS: Hemoglobin A1C 7.3 % (4.2-6.1)
[2017-04-02 16:37] LABS: Urine Creatinine 82.1 mg/dL
== END | disposition home or self-care (01) ==
LOC: LABWHC1 09:56
PROVIDERS: ATTEND Internal Medicine Endocrinology, Diabetes & Metabolism
DX: E11.65 Type 2 diabetes mellitus with hyperglycemia (principal); E03.8 Other specified hypothyroidism; I10 Essential (primary) hypertension
CPT/HCPCS: 36415; 80053; 80061; 82043; 82570; 83036; 84443

== ENCOUNTER → 2017-09-03 | Outpatient (CLI) | payer MEDICARE, BC ==
--- NOTE | 2017-09-04 09:20 | US ---
EXAMINATION TYPE: US kidneys/renal and bladder DATE OF EXAM: 09/03/2017 COMPARISON: NONE CLINICAL HISTORY: N18.3 Chronic kidney ds stage3. EXAM MEASUREMENTS: Right Kidney: 10.4 x 4.8 x 5.1 cm Left Kidney: 9.7 x 4.1 x 5.0 cm Morbidly obese patient, technically difficult and limited study Right Kidney: Lobulated contour and cortical renal thinning are noted. Left Kidney: Lobulated contour,cyst measuring 1.3 x 0.9 x 1.3cm. Cortical renal thinning is noted. Bladder: patient felt full, technologist unable to visualize There is no evidence for hydronephrosis at this point in time. No nephrolithiasis is seen. Cholelit hiasis is incidentally noted. IMPRESSION: 1. No evidence of hydronephrosis or nephrolithiasis. Cortical renal thinning relates to medical renal disease. 1.3 cm left renal cyst is incidentally noted. 2. Incidentally noted cholelithiasis.
== END | disposition home or self-care (01) ==
LOC: RADUSWWP 09:52
PROVIDERS: ATTEND Internal Medicine Nephrology
DX: N28.89 Other specified disorders of kidney and ureter (principal); N18.3 Chronic kidney disease, stage 3 (moderate)
CPT/HCPCS: 76770

== ENCOUNTER → 2018-01-14 | Outpatient (CLI) | payer MEDICARE, BC ==
--- NOTE | 2018-01-14 13:45 | XR ---
EXAMINATION TYPE: XR chest 2V DATE OF EXAM: 01/14/2018 COMPARISON: Chest x-ray July 09, 2016 HISTORY: Cough and shortness of breath. TECHNIQUE: Frontal and lateral views of the chest are obtained. FINDINGS: There is chronic parenchymal change without suspicious new focal air space opacity, pleura l effusion, or pneumothorax seen. The cardiac silhouette size remains enlarged with dual lead pacema ker in place. There is some multilevel spurring in the mid thoracic spine noted.. IMPRESSION: Chronic changes and cardiomegaly without suspicious acute pulmonary process. No signific ant change from most recent chest x-ray.
--- NOTE | 2018-01-14 13:48 | XR ---
EXAMINATION TYPE: XR lumbosacral spine min 4V DATE OF EXAM: 01/14/2018 CLINICAL HISTORY: Chronic low back pain per patient. Spinal stenosis per order. TECHNIQUE: Frontal, lateral, and oblique images of the lumbar spine are obtained. COMPARISON: Lumbar spine x-ray October 07, 2015. CT abdomen August 23, 2015 FINDINGS: There are 5 lumbar type vertebral bodies redemonstrated. The lumbar spine redemonstrated is grade 1 anterolisthesis of L4 on L5 without evidence of acute fracture or dislocation. Vertebral b tiffany heights remain within normal limits. There is stable mild to moderate disc space narrowing L4-L5 level. Mild to moderate multilevel anterior and lateral spurring is redemonstrated. Facet arthropath y lower lumbar levels is seen. The oblique images appear within normal limits. There is posterior dys trophic calcification redemonstrated in the soft tissue. Vascular calcification along course of tortu ous splenic artery is again seen. IMPRESSION: As above, no significant change from prior studies.
== END | disposition home or self-care (01) ==
LOC: RADXRYALE 13:14
PROVIDERS: ATTEND Internal Medicine
DX: M43.16 Spondylolisthesis, lumbar region (principal); M48.061 Spinal stenosis, lumbar region without neurogenic claudication; M46.06 Spinal enthesopathy, lumbar region; M46.96 Unspecified inflammatory spondylopathy, lumbar region; I51.7 Cardiomegaly
CPT/HCPCS: 71046; 72110

== ENCOUNTER → 2019-01-27 | Outpatient (CLI) | payer MEDICARE, BC ==
[2019-01-27 19:47] LABS: African American GFR (CKD) 36.7 (60.0-200.0); Albumin 3.9 g/dL (3.80-4.90); Albumin/Globulin Ratio 1.3 (1.60-3.17); Anion Gap 7.7 mmol/L (4.00-12.00); Calcium 9.3 mg/dL (8.7-10.3); Carbon Dioxide 25.3 mmol/L (21.6-31.8); Chol/HDL Ratio 2.79; LDL Cholesterol,Calculated 72.8 mg/dL (0.0-131.0); Non-African American GFR(CKD) 31.7 (60.0-200.0); Potassium 4.9 mmol/L (3.5-5.5); Total Bilirubin 0.3 mg/dL (0.3-1.2); Total Protein 6.9 g/dL (6.2-8.2); VLDL Calculation 20.2 mg/dL (5.00-40.00)
[2019-01-28 00:22] LABS: Hemoglobin A1C 7.7 % (4.0-6.0)
== END | disposition home or self-care (01) ==
LOC: LABWHC1 12:57
PROVIDERS: ATTEND Internal Medicine Endocrinology, Diabetes & Metabolism
DX: E11.65 Type 2 diabetes mellitus with hyperglycemia (principal)
CPT/HCPCS: 36415; 80053; 80061; 83036; 84443

== ENCOUNTER → 2019-02-28 | Outpatient (CLI) | payer MEDICARE, BC ==
[2019-02-28 10:09] LABS: Potassium 4.7 mmol/L (3.5-5.1)
== END | disposition home or self-care (01) ==
LOC: LABWHC1 09:01
PROVIDERS: ATTEND Internal Medicine Cardiovascular Disease
DX: I25.10 Atherosclerotic heart disease of native coronary artery without angina pectoris (principal)
CPT/HCPCS: 36415; 80051; 82565; 84520

== ENCOUNTER 2019-12-03 11:41 | Emergency (ER) | payer MEDICARE, BC ==
[2019-12-03 11:52] VITALS: RESP 16; TEMP 98.1
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
--- NOTE | 2019-12-03 12:36 | XR ---
EXAMINATION TYPE: XR KUB DATE OF EXAM: 12/03/2019 Comparison: None Clinical History: 84-year-old female abdominal pain/constipation Findings: Small right pleural effusion with right basilar opacity. Right ventricular pacer lead is seen. No evidence for free intraperitoneal air. No dilated small bowel. Some scattered air-fluid levels are present centrally in the abdomen. Scatter ed colonic air and stool is present extending distally to the rectum. Vascular calcifications involving the splenic artery. Degenerative changes of the SI joints. No suspicious calcification clearly seen. IMPRESSION: 1. Small right pleural effusion with adjacent atelectasis and/or consolidation. Correlate as to the n eed for dedicated chest radiography. 2. No evidence for free air. 3. Small air-fluid levels centrally in the abdomen could reflect a regional ileus or enteritis. Overa ll nonobstructive bowel gas pattern.
[2019-12-03 15:11] VITALS: BP 136/74; PULSE 87
== END 2019-12-03 15:10 | disposition home or self-care (01) ==
LOC: EC 11:41
DX: K59.00 Constipation, unspecified (principal); N18.6 End stage renal disease; E11.22 Type 2 diabetes mellitus with diabetic chronic kidney disease; E78.5 Hyperlipidemia, unspecified; E07.9 Disorder of thyroid, unspecified; I13.2 Hypertensive heart and chronic kidney disease with heart failure and with stage 5 chronic kidney disease, or end stage renal disease; I25.2 Old myocardial infarction; I25.10 Atherosclerotic heart disease of native coronary artery without angina pectoris; I50.9 Heart failure, unspecified; M19.90 Unspecified osteoarthritis, unspecified site; Z79.02 Long term (current) use of antithrombotics/antiplatelets; Z79.4 Long term (current) use of insulin; Z79.82 Long term (current) use of aspirin; Z79.890 Hormone replacement therapy; Z79.899 Other long term (current) drug therapy; Z88.0 Allergy status to penicillin; Z88.8 Allergy status to other drugs, medicaments and biological substances; Z82.49 Family history of ischemic heart disease and other diseases of the circulatory system; Z99.2 Dependence on renal dialysis; Z95.5 Presence of coronary angioplasty implant and graft
CPT/HCPCS: 74018; 99284